=== PATIENT | female | born 1975 | race Two or more races ===

== ENCOUNTER 2019-06-01 14:12 | Emergency (ER) | payer OTHER ==
[~2019-06-01] VITALS: Ht 149.9 cm; Wt 86.2 kg
== END 2019-06-01 17:33 | disposition home or self-care (01) ==
LOC: ER 14:12
DX: L02.11 Cutaneous abscess of neck (principal)

== ENCOUNTER 2022-12-14 15:58 | Emergency (ER) | payer OTHER ==
[~2022-12-14] VITALS: Ht 154.9 cm; Wt 99.8 kg
== END 2022-12-14 18:57 | disposition home or self-care (01) ==
LOC: ER 15:58
DX: U07.1 COVID-19 (principal); Z88.6 Allergy status to analgesic agent

== ENCOUNTER 2023-06-23 20:12 | Emergency (ER) | payer OTHER ==
[~2023-06-23] VITALS: Ht 149.9 cm; Wt 86.2 kg
== END 2023-06-23 22:19 | disposition home or self-care (01) ==
LOC: ER 20:12
DX: B02.9 Zoster without complications (principal); R21 Rash and other nonspecific skin eruption

== ENCOUNTER 2023-12-21 07:52 | Outpatient (CLI) | payer OTHER | END 2023-12-21 08:05 | disposition home or self-care (01) | LOC: TOM 07:52 | PROVIDERS: ATTEND Internal Medicine | DX: R59.0 Localized enlarged lymph nodes (principal) ==

== ENCOUNTER 2024-03-04 10:55 | Emergency (ER) | payer OTHER ==
[~2024-03-04] VITALS: Ht 149.9 cm; Wt 88.5 kg
[2024-03-04] MEDS ORDERED: 0.9 % SODIUM CHLORIDE 1,000 ML IV STA (11:16)
[2024-03-04 12:33] LABS: HEMATOCRIT 36.9 % (36.0-45.00); MEAN CELL VOLUME 84.7 fL (80.00-100.00); MEAN CORPUSCULAR HEMOGLOBIN 27.6 pg (27.00-32.0); MEAN CORPUSCULAR HGB CONC 32.6 g/dl (32.0-36.0); PLATELET COUNT 299 K/uL (150-450); RED BLOOD COUNT 4.36 M/uL (4.00-6.00); RED CELL DISTRIBUTION WIDTH 13.4 % (11.5-14.5)
[2024-03-04 12:47] LABS: CREATININE SERUM 0.57 mg/dL (0.55-1.02); GFR 113.21; POTASSIUM 4.02 mEq/L (3.5-5.1)
== END 2024-03-04 14:16 | disposition home or self-care (01) ==
LOC: ER 10:56
PROVIDERS: Emergency Medicine
DX: K52.89 Other specified noninfective gastroenteritis and colitis (principal); Z88.6 Allergy status to analgesic agent